=== PATIENT | male | born 1965 | race Caucasian/White ===

== ENCOUNTER → 2018-01-10 | Day surgery (SDC) | payer OTHER ==
[2017-12-27 08:39] VITALS: BMI 31.0
[~2018-01-10] VITALS: Ht 172.7 cm; Wt 93.2 kg
[~2018-01-10] MED LIST: AMLO-110 PO; ASPI81TA28 PO; GARL1CAP6 PO; LIDOCAINE HCL 2% 2 ML VIAL (20MG/ML) ONE; OMEG10007 PO; PROPOFOL IV EMULSION 10 MG/ML 20 ML VIAL IV ONE; SODIUM CHLORIDE 0.9% 500ML 500 ML IV ONE
[2018-01-10 13:23] VITALS: Ht 172.7 cm; Wt 93.2 kg
[2018-01-10 13:28] VITALS: TEMP 37.3
--- NOTE | 2018-01-10 13:54 | Endo History and Physical ---
History & Physical Date of Service: Jan 10, 2018. Chief Complaint: screening Referring Physician: Dr. Uriarte History of Present Illness 52 yo CM who presents for screening colonoscopy. Past Surgical History Hx Cardiac Surgery: No Hx Internal Defibrillator: No Hx Pacemaker: No Hx Abdominal Surgery: Yes (AVERY) Hx of Implantable Prosthesis: No Hx Post-Op Nausea and Vomiting: No Hx Cancer Surgery: No Hx Thoracic Surgery: No Hx Orthopedic: No Hx Urinary Tract Surgery: No Family History None Social History Smoking Status: Never Smoker Hx Substance Use: No Hx Alcohol Use: No Allergies Coded Allergies: No Known Allergies (Unverified , 01/10/18) Current Medications Reported Home Medications Medications Dose Route/Sig Max Daily Dose Days Date Category Garlic 10 Mg Cap 1 Cap PO DAILY 12/27/17 Reported [place]-3 (Fish Oil) 1 Ea Cap 1 Cap PO DAILY 12/27/17 Reported Aspirin Ec (Aspirin) 81 Mg Tab 81 Mg PO DAILY 12/27/17 Reported Norvasc (Amlodipine Besylate) 5 Mg Tab 5 Mg PO QAM 12/27/17 Reported Vital Signs Weight (Kilograms): 93.18 Height (Feet): 5 Height (Inches): 8 Date Time Temp Pulse Resp B/P (MAP) Pulse Ox O2 Delivery O2 Flow Rate FiO2 01/10/18 13:28 37.3 78 24 153/78 (103) 96 Room Air Physical Exam General Appearance: WD/WN, no apparent distress Respiratory/Chest: Auscultation: breath sounds normal Cardiovascular: Heart Auscultation: RRR Abdomen: Bowel Sounds: normal Inspection & Palpation: soft, non-distended, no tenderness, guarding & rebound Assessment and Plan Assessment: 52 yo CM who presents for screening colonoscopy. Plan: Proceed with colonoscopy.
--- NOTE | 2018-01-10 14:22 | GI REPORT ---
Procedure Date: 01/10/2018 1:56 PM Procedure: Colonoscopy Indications: Screening for colorectal malignant neoplasm Medicines: Monitored Anesthesia Care Complications: No immediate complications. Estimated Blood Loss: Estimated blood loss: none. Procedure: Pre-Anesthesia Assessment: - Prior to the procedure, a History and Physical was performed, and patient medications and allergies were reviewed. The patient's tolerance of previous anesthesia was also reviewed. The risks and benefits of the procedure and the sedation options and risks were discussed with the patient. All questions were answered, and informed consent was obtained. Prior Anticoagulants: The patient has taken no previous anticoagulant or antiplatelet agents. ASA Grade Assessment: II - A patient with mild systemic disease. After reviewing the risks and benefits, the patient was deemed in satisfactory condition to undergo the procedure. After I obtained informed consent, the scope was passed under direct vision. Throughout the procedure, the patient's blood pressure, pulse, and oxygen saturations were monitored continuously. The scope was introduced through the anus and advanced to the cecum, identified by appendiceal orifice and ileocecal valve. The colonoscopy was performed without difficulty. The patient tolerated the procedure well. The quality of the bowel preparation was good. The ileocecal valve, appendiceal orifice, and rectum were photographed. Findings: The perianal and digital rectal examinations were normal. Multiple small-mouthed diverticula were found in the sigmoid colon. Non-bleeding internal hemorrhoids were found during retroflexion. The hemorrhoids were small. Impression: - Diverticulosis in the sigmoid colon. - Non-bleeding internal hemorrhoids. - No specimens collected. Recommendation: - Resume previous diet. - Continue present medications. - Repeat colonoscopy in 10 years for surveillance. - Return to primary care physician as previously scheduled. Buck Fagan DO 01/10/2018 2:21:52 PM This report has been signed electronically. Note Initiated On: 01/10/2018 1:56 PM I attest to the content of the Intraoperative Record and orders documented therein, exceptions below
--- NOTE | 2018-01-10 14:40 | Anesthesiology Progress Note ---
Anesthesia Post Op Note Date & Time Jan 10, 2018 at 14:40 Vital Signs Pain Intensity: 0 Vital Signs Past 12 Hours Date Time Temp Pulse Resp B/P (MAP) Pulse Ox O2 Delivery O2 Flow Rate FiO2 01/10/18 14:37 72 16 133/91 (105) 93 Room Air 01/10/18 14:22 79 16 118/75 (89) 93 Room Air 01/10/18 13:28 37.3 78 24 153/78 (103) 96 Room Air Notes Mental Status: alert / awake / arousable, participated in evaluation Pt Amnestic to Procedure: Yes Nausea / Vomiting: adequately controlled Pain: adequately controlled Airway Patency, RR, SpO2: stable & adequate BP & HR: stable & adequate Hydration State: stable & adequate Anesthetic Complications: no major complications apparent
[2018-01-10 14:52] VITALS: BP 139/95; PULSE 63; O2SAT 95
--- NOTE | 2018-01-10 15:00 | Discharge Instructions ---
Endoscopy Patient Instructions Date / Procedure(s) Performed Jan 10, 2018. Colonoscopy Allergy Information Coded Allergies: No Known Allergies (Unverified , 01/10/18) Discharge Date / Findings Jan 10, 2018. Diverticulosis Internal hemorrhoids Medication Instructions OK to resume all medications today as prescribed Reported Home Medications Medications Dose Route/Sig Max Daily Dose Days Date Category Garlic 10 Mg Cap 1 Cap PO DAILY 12/27/17 Reported [place]-3 (Fish Oil) 1 Ea Cap 1 Cap PO DAILY 12/27/17 Reported Aspirin Ec (Aspirin) 81 Mg Tab 81 Mg PO DAILY 12/27/17 Reported Norvasc (Amlodipine Besylate) 5 Mg Tab 5 Mg PO QAM 12/27/17 Reported Provider Instructions Activity Restrictions - No exercising or heavy lifting for 24 hours. - Do not drink alcohol the day of the procedure. - Do not drive a car or operate machinery until the day after the procedure. - Do not make any important decisions or sign important papers in 24 hours after the procedure. Following Day: - Return to full activity which may include returning to work/school. Diet Start your diet with liquids and light foods (jello, soup, juice, toast). Then eat your usual diet if not nauseated. Treatment For Common After Affects For mild abdominal pain, bloating, or excessive gas: - Rest - Eat lightly - Lie on right side Follow-Up Information Follow-up with Dr. Uriarte as scheduled Anesthesia Information What You Should Know You have had a procedure that required some medicine to reduce anxiety and discomfort. This treatment is called moderate sedation. After receiving the treatment, you may be sleepy, but you will be able to breathe on your own. The effects of the treatment may last for several hours. Follow these instructions along with Activity/Diet recommendations noted above: * Do NOT do anything where dizziness or clumsiness would be dangerous. * Rest quietly at home today, then you can be up and about tomorrow. * Have a responsible person stay with you the rest of today. * You may have had an I.V. today. If so, you may take the dressing off later today. Recommendations Call your doctor if: * Trouble breathing * Continuous vomiting for more than 24 hours * Temperature above 101 degrees * Severe abdominal pain or bloating * Pain not relieved by pain medicine ordered * There is increased drainage or redness from any incision * A large amount of rectal bleeding greater than 2-3 tablespoons. (If you had a polyp/s removed or have hemorrhoids, a small amount of blood - from the rectum is to be expected.) * You have any unanswered questions or concerns. IN THE EVENT OF A SERIOUS EMERGENCY, GO TO THE NEAREST EMERGENCY ROOM Your discharge instructions were prepared by provider Buck Fagan. Patient Instructions Signature Page Joshua Eaton Patient (or Guardian) Signature/Date: I have read and understand the instructions given to me by my caregivers. Caregiver/RN/Doctor Signature/Date: The above-named patient and/or guardian has received patient instructions on this date. + Original Patient Signature Page (only) stays with chart. Please make copy for patient.
== END | disposition home or self-care (01) ==
LOC: C.GI 13:08
PROVIDERS: ATTEND Internal Medicine
DX: Z12.11 Encounter for screening for malignant neoplasm of colon (principal); K57.30 Diverticulosis of large intestine without perforation or abscess without bleeding; K64.8 Other hemorrhoids; I10 Essential (primary) hypertension; E66.9 Obesity, unspecified; Z90.49 Acquired absence of other specified parts of digestive tract; Z79.82 Long term (current) use of aspirin; Z87.442 Personal history of urinary calculi

== ENCOUNTER 2025-01-08 08:49 | Observation (INO) ==
--- NOTE | 2024-12-05 10:38 | PAT Medication Instructions ---
Medication Instructions Date of Service December 05, 2024 Home Medications Medication Instructions Recorded diclofenac sodium 1 % topical gel 2 g topical QID PRN pain, moderate 06/03/24 #100 grams omega-3 fatty acids 1,000 mg capsule (Fish Oil Concentrate) 1,200 mg PO QAM triamcinolone acetonide 0.1 % topical ointment 1 applic topical BID PRN Rash diclofenac sodium 1 % topical gel 2 g topical QID PRN pain, moderate hydrochlorothiazide 25 mg tablet 50 mg PO QAM STOP taking 2 weeks before surgery omega-3 fatty acids 1,000 mg capsule (Fish Oil Concentrate) 1,200 mg PO QAM STOP taking 24 hours before surgery triamcinolone acetonide 0.1 % topical ointment 1 applic topical BID PRN Rash diclofenac sodium 1 % topical gel 2 g topical QID PRN pain, moderate DO NOT take the morning of surgery hydrochlorothiazide 25 mg tablet 50 mg PO QAM OTHERWISE NOTHING TO EAT OR DRINK AFTER MIDNIGHT Other Notes If you have any questions please call us at [phone] or [phone] or [phone] or [phone]
--- NOTE | 2024-12-15 09:48 | Anesthesiology Consultation ---
Date of Service December 15, 2024 Assessment & Plan (1) Encounter for pre-operative examination: - Outpatient joint assessment: Patient is currently scheduled for inpatient pathway. If re-evaluated and patient/surgeon requests outpatient pathway, patient is acceptable candidate for outpatient joint program from anesthesia standpoint pending surgeon's office assessment of pt motivation/support/completion of same day joint program preop requirements. Chart Review Chart Review: Acceptable Risk for Surgery and Patient seen in Pre Admission Testing Teaching & Discussion Pre-Anesthesia Teaching/Discussion Notes: Instructed NPO after midnight before surgery, except medications with 15 cc of water. Medication instructions provided according to the PAT guidelines. History Surgery Operation Date: 01/08/25 10:40 Proposed Procedures p Left Total Knee Arthroplasty - Buster Gruber MD Height/Weight Height: 5 ft 8 in Weight: 101.1 kg Allergies Allergy/AdvReac Type Severity Reaction Status Date / Time No Known Allergies Allergy Verified 12/05/24 08:31 Medications Home Medications Medication Instructions Recorded Confirmed Last Taken omega-3 fatty acids 1,000 mg 1,200 mg PO QAM 01/20/20 12/05/24 Unknown capsule (Fish Oil Concentrate) triamcinolone acetonide 0.1 % 1 applic topical BID PRN Rash 03/24/24 12/05/24 Unknown topical ointment diclofenac sodium 1 % topical gel 2 g topical QID PRN pain, moderate 06/03/24 12/05/24 Unknown #100 grams hydrochlorothiazide 25 mg tablet 50 mg PO QAM 12/05/24 12/05/24 Unknown Past Medical History Medical History (Updated 12/16/24 @ 09:00 by Bebe Hooks PA-C) Acute meniscal tear of left knee Diverticulosis denies h/o diverticulitis Dyslipidemia Elevated hemoglobin A1c History of kidney stones (~1999) Hypertension controlled, stable per pt Osteoarthritis Patient denies h/o stroke, seizures, heart attack, heart failure, blood clots/DVTs or blood transfusions. Exercise / Class Metabolic Activity III < 4 Walking/Shop/Light housework (denies chest discomfort or shortness of breath with usual activities, less than 8 steps in home) Past Family History Family History Father Hypertension Parkinsons disease Son Leukemia Family/Other Myocardial infarction Uncle Myocardial infarction Mother Parkinsons disease Other No family history of adverse response to anesthesia Denies family history of Ovarian cancer Prostate cancer Breast cancer Colorectal cancer Past Surgical History Surgical History H/O wisdom tooth extraction History of colonoscopy Hx of cholecystectomy Hx of LASIK Past Anesthesia History No Hx of Anesthesia Complications and No Family Hx of Anesthesia Complications History of PONV No Hx of Motion Sickness and History of PONV (with wisdom teeth removal ) Social History Smoking Status: Never smoker Do You Dip or Chew Tobacco: No Hx Alcohol Use: No Hx Substance Use: No substance use type: does not use Review of Systems Patient denies chest pain, shortness of breath, dyspnea on exertion, snoring, witnessed apneas, reflux, fever, chills, cough, wheezing, or palpitations. Physical Exam Vital Signs Vitals BP 139/83 P 79 TEMP 98.1 SP02 96% on RA RESP 19 Physical Patient resting comfortably in chair in no acute distress, alert and oriented, responding appropriately throughout visit Full cervical extension range of motion without pain TMD 3.5 finger breadths Mallampati Score 3 Dentition: intact, denies chipped or loose teeth, caps/crowns, implants or bridges Lungs: normal respiratory effort. Good air movement, clear throughout to auscultation, no adventitious breath sounds Cardiac: regular rate and rhythm, no murmurs noted Carotid arteries: negative bruit bilat Lab Results Anesthesia Preop Results Results Anesthesia Widget: WBC 6.73 K/ul (4.8-10.8) 12/15/24 Hgb 16.3 g/dl (14.0-18.0) 12/15/24 Hct 47.3 % (42.0-52.0) 12/15/24 Plt 262 K/uL (130-400) 12/15/24 Na 140 mmol/L (136-145) 12/15/24 K 3.5 mmol/L (3.5-5.1) 12/15/24 Cl 98 mmol/L (98-107) 12/15/24 CO2 32 mmol/L (21-32) 12/15/24 BUN 20 mg/dl (6-23) 12/15/24 Creat 1.05 mg/dl (0.6-1.4) 12/15/24 Glucose Level 147 mg/dl (70-99(Fasting)) H 12/15/24 PT 11.3 Seconds (9.0-12.0) 12/15/24 PTT 25 Seconds (21-31) 12/15/24 INR 1.0 (0.9-1.1) 12/15/24 HA1c 6.4 % (4.5-5.6) H 12/15/24 Blood Type A Positive 12/15/24 Antibody Screen NEGATIVE 12/15/24 Testing Electrocardiogram Date: 12/15/24 NSR, rate 80 bpm Left axis deviation Chest X-Ray Date: 12/15/24 No acute findings.
--- NOTE | 2025-01-03 13:49 | History & Physical Report ---
Date of Service January 03, 2025 Assessment & Plan (1) Bilateral primary osteoarthritis of knee: 59-year-old male with advanced bilateral knee DJD left side more symptomatic than the right. Is failed conservative treatment. He would like to proceed with a knee replacement. Plan: We will take him to the operating room and do a left knee replacement. The risks and benefits of this procedure were explained and the patient understands. Informed consent was obtained. Will plan on using thigh-high teds, SCDs, aspirin for DVT prophylaxis. He is prediabetic will likely need insulin scot sliding scale coverage in the hospital. He is planned to be discharged to home using [facility] program. (2) Dyslipidemia: (3) Hypertension: History of Present Illness Chief Complaint: . Bilateral knee pain discomfort left side greater than the right. Primary Care Provider: Jones Uriarte DO . The patient is a 59-year-old fairly active gentleman who presents for surgical treatment of his knees. Is been a long-term patient of Dr. Ruiz. He has been through extensive conservative treatment which has become less successful over time. Both knees hurt. The left knee bothers him more than the right. He has been wearing a brace with minimal relief. Has had injections which have become less successful. He would like to have his left knee r eplaced. Allergies Allergy/AdvReac Type Severity Reaction Status Date / Time No Known Allergies Allergy Verified 12/05/24 08:31 Home Medications Medication Instructions Recorded Confirmed Type omega-3 fatty acids 1,000 mg 1,200 mg PO QAM 01/20/20 12/05/24 History capsule (Fish Oil Concentrate) triamcinolone acetonide 0.1 % 1 applic topical BID PRN Rash 03/24/24 12/05/24 History topical ointment diclofenac sodium 1 % topical gel 2 g topical QID PRN pain, moderate 06/03/24 12/05/24 Rx #100 grams hydrochlorothiazide 25 mg tablet 50 mg PO QAM 12/05/24 12/05/24 History Past Med/Surg History Problem List Encounter for pre-operative examination Bilateral primary osteoarthritis of knee Dyslipidemia (Acute) Hypertension (Acute) Medical History Dyslipidemia Hypertension controlled, stable per pt Elevated hemoglobin A1c Osteoarthritis History of kidney stones (~1999) Acute meniscal tear of left knee Diverticulosis denies h/o diverticulitis Surgical History History of colonoscopy Hx of LASIK H/O wisdom tooth extraction Hx of cholecystectomy Family History Father Hypertension Parkinsons disease Son Leukemia Family/Other Myocardial infarction Uncle Myocardial infarction Mother Parkinsons disease Other No family history of adverse response to anesthesia Denies family history of Ovarian cancer Prostate cancer Breast cancer Colorectal cancer Social History Smoking Status: Never smoker Second Hand Exposure: No; Do You Dip or Chew Tobacco: No; Hx Alcohol Use: No Hx Substance Use: No Preferred Language: [place] Communication Ability: Effective Visual Impairment: No Limitations Hearing Ability: Normal Vehicle Calibration Engineer Required: No Beliefs That Will Affect Care: None marital status: Current Living Situation: Spouse and Family Current Living Situation Comment: lives with and youngest son current occupational status: employed current occupation: AUT[employer] Feels Safe at Home: Yes Childhood Exposure to Second-Hand Smoke: No Diet: regular Dental Care, Regularly: Yes Physical Activity Frequency: 1-2 Times per Week Seatbelt Use: always Sunscreen Use: No Assistive Devices: None Review of Systems All systems reviewed & are unremarkable except as noted in HPI & below. Physical Exam . Physical examination was a pleasant middle-aged male. Examination both knees reveal patient walks independently. He wears compression sleeves on both knees in a hinged knee brace on the left side. Examination left knee reveals varus alignment. Got bony hypertrophy medially. Range of motion about 10-1 15. No instability. No pain with hip motion. Examination of the right knee reveals slight varus alignment. Minor bony hypertrophy. Minimal knee effusion. Range of motion 0-1 25. No pain with hip motion. Constitutional WD/WN, vitals as above Respiratory normal respiratory effort, lungs clear to auscultation Cardiovascular RRR, no murmur, no edema Gastrointestinal (Abdomen) normal bowel sounds, soft, nontender, no hepatosplenomegaly Results & Data Results & Data Laboratory Results . Diagnostic Findings . X-rays of the left knee were reviewed. She has advanced left knee DJD. Got complete loss of medial joint space. He is got subchondral sclerosis. He looks like he is got some loose bodies in the back of his knee. Got osteophytes in all 3 compartments. He has similar but less severe disease on his right side. PG Care Time/CCT Total # of Minutes Spent Total Time Spent with Patient: Total time spent is greater than 50% in coordination of care (as documented) at patient's floor/unit and/or counseling patient: Coding Level of Care Code None Diagnoses Bilateral primary osteoarthritis of knee M17.0 Dyslipidemia E78.5 Primary hypertension I10 Hypertension type: primary hypertension (3) Hypertension Hypertension type: primary hypertension Qualified Code(s): I10 - Essential (primary) hypertension
[~2025-01-08 08:49] MED LIST changes: -AMLO-110 PO; -ASPI81TA28 PO; +BUPIVACAINE 0.25% PF 30 ML VIAL ONE; +BUPIVACAINE 0.5 % 5 MG/1 ML PF 10ML VIAL ONE; -GARL1CAP6 PO; -LIDOCAINE HCL 2% 2 ML VIAL (20MG/ML) ONE; -OMEG10007 PO; -PROPOFOL IV EMULSION 10 MG/ML 20 ML VIAL IV ONE; -SODIUM CHLORIDE 0.9% 500ML 500 ML IV ONE
--- NOTE | 2025-01-08 09:00 | History & Physical Bridge Note ---
Date of Service January 08, 2025 History & Physical Bridge Note I have examined the patient, reviewed the History & Physical and in the interval since the performance of the History & Physical I have noted the following changes of clinical significance: no changes noted
[2025-01-08] MEDS: LR 500ML BOLUS, THEN 15ML/HR IV SCH (09:07)
[2025-01-08] MEDS: LR 60ML/HR IV SCH (09:07)
[2025-01-08] MEDS: ACETAMINOPHEN 500 MG TAB PO SCH ×2 (09:08→14:56)
[2025-01-08] MEDS: CeleBREX 200 MG CAP PO SCH (09:08)
[2025-01-08] MEDS: FAMOTIDINE 20 MG TAB PO SCH (09:08)
[2025-01-08] MEDS: dexAMETHasone**PF** 10 MG/ML VIAL IV SCH (09:08)
[2025-01-08] MEDS: METOCLOPRAMIDE HCL 10 MG TABLET PO SCH (09:08)
[2025-01-08] MEDS ORDERED: MIDAZOLAM HCL 1 MG/ML 2ML VIAL ONE ×2 (09:35→10:13)
[2025-01-08] MEDS ORDERED: fentaNYL citrate PF 100 MCG/2 ML VIAL ONE (09:35)
[2025-01-08] MEDS ORDERED: PROPOFOL IV EMULSION 10 MG/ML 20 ML VIAL IV ONE ×3 (09:38→12:49)
[2025-01-08] MEDS ORDERED: ONDANSETRON INJ 2 MG/ML 2 ML VIAL IV PRN ×2 (09:46→14:19)
[2025-01-08] MEDS ORDERED: ePHEDrine sulfate 50 MG/ML AMP IV PRN (09:46)
[2025-01-08] MEDS ORDERED: ATROPINE SULFATE 0.1 MG/ML 10ML SYR IV PRN (09:46)
[2025-01-08] MEDS ORDERED: fentaNYL citrate PF 100 MCG/2 ML VIAL IV PRN (09:46)
[2025-01-08] MEDS: ceFAZolin 2000MG 2,000 MG/15 ML SYR IV SCH ×2 (11:34→18:37)
[2025-01-08] MEDS: ORTHO JOINT ANESTHETIC ONE (12:00)
[2025-01-08] MEDS: ROPIV 0.5% 246mg, Ketorolac 30mg, EPINEPHrine 0.5mg in NSS INFIL SCH (12:00)
[2025-01-08] MEDS ORDERED: ONDANSETRON INJ 2 MG/ML 2 ML VIAL ONE (12:02)
[2025-01-08] MEDS: TRANEXAMIC ACID 1,000 MG **IV Intra-op IV SCH (12:28)
[2025-01-08] MEDS ORDERED: PHENYLEPHRINE 100MCG/ML 5ML SYR ONE (12:55)
--- NOTE | 2025-01-08 13:18 | Operative Report ---
PG Post Operative Report Pre & Post Diagnosis Operation Date: 01/08/25 10:40 Pre-Op Diagnosis: Left Knee Osteoarthritis Post-Op Diagnosis: Left Knee Osteoarthritis I identified the patient and participated in the time-out.: Yes Procedure Operation Date: 01/08/25 10:40 Actual Procedures p Left Total Knee Arthroplasty(Left) - Buster Gruber MD Surgeon Buster Gruber MD Stringed Instrument Repairer González Thornton PA-C Estimated Blood Loss 50 Findings Consistent with Post-Op Diagnosis Specimens Left knee sent for pathology. Anesthesia Type Spinal MAC Complications none Disposition Accompanied Patient To Recovery: No Indications The patient is a 59-year-old fairly active gentleman with a long history of bilateral knee pain discomfort describes gotten worse over time. Is been through extensive conservative treatment. Became less successful over time. X- rays show advanced bilateral knee arthritis. The left knee was bothering more than the right. He elected proceed with left total knee arthroplasty. Description of Procedure Operative implants consist of: 1. Biomet Vanguard size 65 left posterior stabilized femoral component. 2. Biomet size 75 tibial tray. 3. 12 mm posterior stabilized polyethylene insert. 4. 31 x 8 all poly patella. The patient was taken the op room, identified, placed on the operating table in the supine position. All conductors were appropriately padded. IV antibiotics fibra anesthesia team. A spinal anesthetic and adductor canal block had been provided in the holding area. A left thigh tent was then placed. The left lower extremity was then prepped and draped in usual sterile fashion. The left leg was elevated and exsanguinated with use of an Esmarch and the tourniquet was placed at 300 mmHg. An anterior approach to the left knee was then performed to longitudinal incision centered over the patella. Sharp dissection was Through subcutaneous tissue down the extensor mechanism. A medial parapatellar arthrotomy incision was made. Some subperiosteal dissection was carried out medially. The fat pad was resected from his patella tendon. Lateral patellofemoral ligament was released. Patella subluxated laterally and the knee was flexed. The osteophytes taken off distal femur. ACL and PCL were then released from distal femur the tibia subluxated anteriorly. The external treatment LYMErix then placed on the anterior face the tibia and adjusted 14 mm medially. The proximal tibial cut was made remove out of millimeter bone from the mL deficient aspect medial tibial plateau. The tibia sized to a size 75. Attention was then drawn to the femur. The distal femur examined the sharp drop with intramedullary canal was suction. A left 6 degree valgus cutting guide was placed. The distal femoral cutting block was pinned in place. Distal femoral cut was made take an additional 3 mm of bone off distal femur. The femur was then sized to a size 65. The AP cutting block was pinned parallel to the epicondylar axis which was 4 degrees of external rotation. The anterior cut, anterior chamfer, posterior cut, posterior chamfer cuts were made. The box cutting guide was placed and adjusted slightly laterally. The box cut was made. The knee was flexed. The remnants of the medial and lateral menisci were excised. The osteophytes taken off the posterior aspect of femur. A trial femoral component was placed. The tibial tray was pinned Vianey external rotation and the drill and stem punch were used to create defect in the proximal tibia for the tibial tray. The knee was then trialed and the 12 mm insert fit most appropriately. Attention was then drawn to the patella. The patella was cleaned of all soft tissue. Patella thickness measured 23 mm in thickness and was cut down to 15. It was sized to a size 31 patella. The lug holes were drilled for 31 patella. The lateral osteophytes removed. Patella button was placed. Knee was taken through range of motion patella tracked nicely with no thumbs test. Attention was then drawn toward placement permanent components. Nupathe all trial components were removed. Bone plug was placed into this femur limit blood loss. A double batch [place] G cement was mixed. Biomet Vanguard size 65 left posterior stabilized femoral component, a size 75 tibial tray, a 12 mm posterior stabilized polyethylene insert, and a 31 x 8 all poly patella then cemented in place. The knee was brought out into full extension till cement hardened. Final cement check was then performed. The pericapsular tissues were injected with total 100 cc of Ortho mix. The patient did receive 1 g of tranexamic acid. The tourniquet was then let down for final tourniquet time 56 minutes. Hemostasis surgeries electrocautery. Extensor Meclomen then closed with a combination 1 PDS suture #0 Vicryl suture in a loivbo-ci-wewon fashion. The extensor Metros were checked and found to be intact through the subcutaneous tissues then closed with 2 Dexon suture in a buried interrupted fashion skin was closed skin kala. Leg was then cleaned and dried and sterile dressing with Xeroform, 4 fours, sterile ABD pad, sterile cast padding, Bret bandage were applied. The patient was then transferred to the recovery room in stable condition. The patient tolerated the procedure well and there were no complications. González Thornton, my physician retail assistant manager, was present for the entire procedure. His assistance was essential and required for appropriate patient positioning, prepping and draping, surgical exposure, performing the technical details of the operation, placement the implants, closure of the wound, and placement of the sterile bandage. I attest to the content of the Intraoperative Record and any orders documented therein. Any exceptions are noted below.
--- NOTE | 2025-01-08 13:31 | XRay Report ---
XR knee LT 1 or 2V routine CLINICAL HISTORY: Surgical Post Op COMPARISON: 08/20/2023 FINDINGS: Left knee prosthesis shows no hardware complication. There is expected soft tissue gas. Sk in kala are present. IMPRESSION: Unremarkable postoperative exam. ACT 112: Negative or not required by law. Electronically signed by: Wilfrido Corrales M.D. 01/08/2025 1:29 PM
--- NOTE | 2025-01-08 13:53 | Anesthesiology Progress Note ---
Date of Service January 08, 2025 Anesthesia Post Procedure Vital Signs Vital Signs: Temp Pulse Pulse Resp BP Pulse Ox O2 Del Method 01/08/25 13:40 36.5 C 82 18 107/63 96 Oxymask 01/08/25 13:30 84 18 111/54 L 94 Oxymask 01/08/25 13:20 80 21 106/54 L 95 Oxymask 01/08/25 13:12 36.3 C L 83 20 106/51 L 93 Oxymask 01/08/25 08:54 36.7 C 67 18 148/80 H 95 Room Air O2 Flow Rate 01/08/25 13:40 2 01/08/25 13:30 2 01/08/25 13:20 7 01/08/25 13:12 7 01/08/25 08:54 Pain Intensity Left Knee: Pain Intensity: 0 Transfer of Care Handoff Completed per policy Notes Mental Status: alert / awake / arousable Patient Amnestic to Procedure: Yes Nausea / Vomiting: adequately controlled Pain: adequately controlled Airway Patency, RR, SpO2: stable & adequate BP & HR: stable & adequate Hydration State: stable & adequate Neuraxial Anesthesia: was administered and sensory block is resolving Anesthetic Complications: no major complications apparent and Pt Satisfied with anesthetic care
[2025-01-08] MEDS ORDERED: MAGNESIUM HYDROXIDE SUSP 30 ML UDC PO PRN (14:19)
[2025-01-08] MEDS ORDERED: ALUMINUM/MAGNESIUM SUSP 30 ML UDC PO PRN (14:19)
[2025-01-08] MEDS ORDERED: GLUCOSE 10 TAB/TUBE PO PRN (14:19)
[2025-01-08] MEDS ORDERED: TRIAMCINOLONE ACET 0.1% OINT 15 GM TUBE TOP PRN (14:19)
[2025-01-08] MEDS ORDERED: GLUCOSE 40% GEL 15 GM TUBE PO PRN (14:19)
[2025-01-08] MEDS ORDERED: HYDROmorphone INJ 0.5 MG/0.5 ML SYR IV PRN (14:19)
[2025-01-08] MEDS ORDERED: CARBOHYDRATES FOR HYPOGLYCEMIA PO PRN (14:19)
[2025-01-08] MEDS ORDERED: PHARMACY GLYCEMIC MGMT CONSULT PRN (14:19)
[2025-01-08] MEDS ORDERED: bisacodyL 10 MG SUPP PR PRN (14:19)
[2025-01-08] MEDS ORDERED: GLUCAGON FOR INJ 1 MG VIAL SQ PRN (14:19)
[2025-01-08] MEDS ORDERED: METOCLOPRAMIDE HCL INJ 5 MG/ML 2 ML VIAL IV PRN (14:19)
[2025-01-08] MEDS ORDERED: DEXTROSE 50% 50 ML SYRINGE IV PRN (14:19)
[2025-01-08] MEDS ORDERED: oxyCODONE HCL IR 5 MG TAB (IMMEDIATE RELEASE) PO PRN (14:19)
[2025-01-08] MEDS ORDERED: NALOXONE HCL 0.4 MG/1 ML VIAL/CARP IV PRN (14:19)
--- NOTE | 2025-01-08 14:37 | Pharmacy Report ---
Pharmacy Glycemic Short Note 2 - Date of Service January 08, 2025 - Glycemic Short BSG Results (Last 24 hours): 01/08/25 08:52 POC Glucose 129 H OUTPATIENT ANTIDIABETIC REGIMEN: * n/a * a1C 6.4% 12/17/34 ASSESSMENT: * Patient with pre-diabetes without anti-diabetic agents admitted following Left total knee arthroplasty * Pre-op BSG 129 mg/dL. Received dex10 mg IV x 1 this AM, additional dose tomorrow * Will hold on basal for now, begin weight stress 2 novolog PLAN FOR INPATIENT GLYCEMIC CONTROL: * Basal insulin * hold * Bolus insulin * NovoLog per scale ACHS or Q6hrs while NPO * Goal Range: Low 110 mg/dL - High 160 mg/dL * Correction Factor: 25 mg/dL/unit * Nutritional / Prandial insulin per carb ratio of 1 unit per 8 grams CHO consumed
[2025-01-08] MEDS: KETOROLAC 30 MG/ML VIAL IV SCH (14:56)
[2025-01-08] MEDS: INSULIN ASPART PER UNIT CHARGE SC SCH (15:04)
[2025-01-08] MEDS: ASCORBIC ACID 500 MG TAB PO SCH (17:14)
[2025-01-08] MEDS: TRANEXAMIC ACID / 0.7% NACL 1,000 MG/100 ML BAG IV SCH (18:40)
[2025-01-08] MEDS ORDERED: SENNA 8.6 MG TAB PO SCH (21:00)
[2025-01-08] MEDS: ASPIRIN 81 MG ECTAB PO SCH (21:57)
[2025-01-08] MEDS: SENNA 8.6 MG TAB PO SCH (21:58)
[2025-01-08] MEDS: DOCUSATE SODIUM 100 MG CAP PO SCH (21:58)
[2025-01-09] MEDS: INSULIN ASPART PER UNIT CHARGE SC SCH (00:45)
[2025-01-09 06:18] LABS: Hematocrit (blood only) 37.7 % (42.0-52.0); Hemoglobin 13.5 g/dl (14.0-18.0); Mean Corpuscular Hemoglobin 29.9 pg (25.0-34.0); Mean Corpuscular Hgb Conc 35.8 g/dL (32.0-36.0); Mean Corpuscular Volume 83.6 fL (80.0-100.0); Mean Platelet Volume 10.5 fL (9.4-12.4); Platelet Count 265 K/uL (130-400); RDW Coefficient of Variation 12.5 % (11.5-14.5); RDW Standard Deviation 38.1 fL (36.4-46.3); Red Blood Count 4.51 M/uL (4.70-6.10); White Blood Count 18.74 K/ul (4.8-10.8)
[2025-01-09 06:28] LABS: BUN Creatinine Ratio 23.1 (10-20); Calcium 8.7 mg/dl (8.6-10.3); Creatinine Clr Calc Pharmacy 82.7 ml/min; Potassium 3.2 mmol/L (3.5-5.1)
--- NOTE | 2025-01-09 07:25 | Orthopedic Progress Note ---
Date of Service January 09, 2025 Assessment & Plan (1) Status post left knee replacement: Plan: 59-year-old gentleman postop day 1 from a left knee replacement he is doing pretty well. Pains controlled. He is neurologically intact. Plan: 1. DVT prophylaxis including thigh-high teds, SCDs, aspirin twice a day. 2. PT/OT. Weight-bear as tolerated. Left total knee protocol. 3. Pain control. Doing okay with current pain regimen. 4. Disposition. Plan is to discharge to home with some home health later today after therapy (2) Dyslipidemia: (3) Hypertension: Admission and Anticipated Discharge Date Admission Date: January 08, 2025 Subjective 59-year-old gentleman postop day 1 from a total knee replacement. He is doing pretty well. Had a reasonable night. Pains controlled. No chest pain or shortness of breath. Not feeling dizzy or lightheaded. Hoping to go home today. Physical Exam Physical Exam: Physical examination was a pleasant middle-age male. He is lying in bed looks pretty comfortable this morning. Examination of the left leg reveals the dressing be clean dry and intact. He can dorsiflex and plantarflex his foot appropriately. He is neurologically intact. Respiratory: normal respiratory effort, lungs clear to auscultation Cardiovascular: RRR, no murmur, no edema Gastrointestinal (Abdomen): normal bowel sounds, soft, nontender, no hepatosplenomegaly Results & Data Vital Signs (Past 12 Hours) Vital Signs Temp Pulse Resp BP Pulse Ox O2 Del Method 01/09/25 04:06 36.6 C 84 18 109/64 94 Room Air 01/08/25 23:47 36.7 C 91 H 18 101/60 92 Room Air 01/08/25 21:51 36.7 C 90 16 125/69 97 Room Air Laboratory Results Hemoglobin is 13.5. Hematocrit is 37.7. Electrolytes are stable. (3) Hypertension Hypertension type: primary hypertension Qualified Code(s): I10 - Essential (primary) hypertension
[2025-01-09 07:35] VITALS: BP 132/70; PULSE 87; RESP 17; TEMP 97.7; O2SAT 95
[2025-01-09] MEDS: TAMSULOSIN HCL 0.4 MG CAP PO SCH (08:07)
[2025-01-09] MEDS: MULTIVITAMIN TAB PO SCH (08:07)
[2025-01-09] MEDS: OMEGA-3 (PURIFIED FISH OIL) 1 GM CAP PO SCH (08:07)
[2025-01-09] MEDS: hydroCHLOROthiazide 25 MG TAB PO SCH (08:07)
[2025-01-09] MEDS: dexAMETHasone 10 MG in SYRINGE 0 ML IV SCH (08:08)
--- NOTE | 2025-01-12 06:35 | Discharge Summary ---
Date of Service January 12, 2025 Admission HPI (Per Admitting) . The patient is a 59-year-old fairly active gentleman who presents for surgical treatment of his knees. Is been a long-term patient of Dr. Ruiz. He has been through extensive conservative treatment which has become less successful over time. Both knees hurt. The left knee bothers him more than the right. He has been wearing a brace with minimal relief. Has had injections which have become less successful. He would like to have his left knee replaced. Admission Exam (Per Admitting) . Physical examination was a pleasant middle-aged male. Examination both knees reveal patient walks independently. He wears compression sleeves on both knees in a hinged knee brace on the left side. Examination left knee reveals varus alignment. Got bony hypertrophy medially. Range of motion about 10-1 15. No instability. No pain with hip motion. Examination of the right knee reveals slight varus alignment. Minor bony hypertrophy. Minimal knee effusion. Range of motion 0-1 25. No pain with hip motion. Principal Diagnosis Same as "Discharge Diagnosis" noted below under Discharge Instructions. Discharge Data Procedures Performed Operation Date: 01/08/25 10:40 Actual Procedures p Left Total Knee Arthroplasty(Left) - Buster Gruber MD Ordered Studies 01/08/25 05:00 US - OR guided needle placemen Routine Hospital Course (1) Status post left knee replacement: This is a 59 year old patient admitted on 01/08/25 and underwent total knee arthroplasty. He tolerated the procedure well and there were no complications. Transferred to the PACU post op and later to the orthopedic floor for further care. He was given ancef for antibiotic prophylaxis. He was also given LYDIA stockings, SCDs, and aspirin for DVT prophylaxis. Hemoglobin, hematocrit, and vital signs were monitored during his hospital stay and remained stable. Did not require any blood transfusions. There were no complications during his hospital stay. By post op day #1 the patient was tolerating a diabetic diet, pain was reasonably controlled with oral pain medicine, and he was participating in physical therapy. On post op day #1 the patient was discharged home and set up with home health care. He was given printed discharge instructions including prescriptions for extra strength tylenol, aspirin, cefadroxil,ketorolac, zofran, senokot, flomax, and oxycodone. Continue physical therapy, weight bearing as tolerated. Continue LYDIA stockings. Follow up approximately 2 weeks post op or sooner if there are problems or concerns. Discharge Plan Discharge Items Patient Disposition: Home - Home Health Services Reason For Visit: Left Knee Osteoarthritis Discharge Diagnosis: Left Knee Replacement Activity: Per Instructions section Weightbearing: Full weightbearing Non-emergency contact: Surgeon Call non-emergency contact if: you have any medication questions Follow-up/Referrals: Jones Uriarte, DO [Primary Care Provider] - Diet: Carb Consistent or DM2 Addtl Attending Provider Instructions: ACTIVITY RECOMMENDATIONS: Diet: * You may resume previous diet. Physical Therapy: * You will go to physical therapy three times each week for four to six weeks after your surgery in order to regain your knee range of motion and to retrain your knee to work properly. * It is just as important to make sure you are getting your knee perfectly straight as it is to regain your knee bend. * Taking a pain pill an hour before therapy can help you have a more productive and comfortable therapy session. Home Exercise: * You were shown a series of exercises (heel props, heel slides, etc.) in the hospital. Do these exercises three to four times each day including the exercises you were shown in physical therapy. Walking: * Get up and walk several times each day. For the first four weeks, try not to stand or walk for more than one hour at a time. If you do stand or walk for more than one hour, you will not hurt anything, but your knee and leg will likely swell. * As you feel comfortable, you may change from the walker or crutches to a cane and then to independent walking. MEDICATIONS: New Medicine: * You will likely be taking one or more of these medications: 1. Oxycodone - A quick and shorter-acting pain medication. Take one to two tablets every six hours to lessen your pain. 2. Aspirin - Thins your blood to lessen the chance of forming a blood clot. * The most common side effects of pain medicine and iron are nausea and constipation. If nausea or constipation is too much of a problem or if you have any questions about your new medicines or doses, call [facility] at . We will try to help you manage these issues. "VERY IMPORTANT TO READ AND REVIEW" Pain: * The immediate post-operative period after knee replacement surgery is often quite painful. * You are given a prescription for pain medicine. You should take it, as directed, when you need it, especially before physical therapy and before going to bed. Pain that interferes with sleep is very common and can last several months. * You will likely need pain medicine for the first four to six weeks. It will not stop all of the pain. The pain will lessen and as you feel better, you may change to milder pain medicine such as Tylenol. * The most common side effects of pain medicine are nausea and constipation, so don't take more than you need. SPECIAL CARE INSTRUCTIONS: TEDs/Elastic Stockings: * The white elastic stockings help limit swelling and prevent blood clots from forming in your legs. The more you wear them, the more they work. * Wear them for six weeks after knee replacement surgery and four weeks after partial knee replacement. Incision Site Care: * Remove dressing postoperative day 2 and then shower. Keep direct shower pressure off the incision site. * After showering, cover kala with dry gauze and change daily or more frequently if the dressing is getting saturated with drainage. * Use the LYDIA stockings to hold dressing in place. DO NOT apply tape on the skin. * May completely stop using bandage if wound is dry and no drainage * [place] are removed between 2 and 3 weeks post-op. If your follow-up appointment is made before 2 weeks, please have your appointment re- scheduled. It is too early to remove the kala. Prevention of Infection: * Take antibiotics one hour before any dental cleaning, dental work, urological procedure, gastrointestinal procedure or any invasive surgery in order to prevent your new joint from getting infected. * You may get the antibiotics from the doctor performing the procedure or you may call our office at [phone] before and we will call in a prescription to the pharmacy of your choice. Things to Watch For: * Drainage from the incision site that occurs more than one week after your surgery. * Severely increased knee/leg pain or swelling. * Increased redness at the incision site. * Fever above 102 degrees Fahrenheit. * Unusual chest pain or shortness of breath. * Unusual pain or burning with urination. Call [facility] at [phone] with any of the above problems or if you have any questions about your medicines or recovery. FOLLOW UP VISIT: Make an appointment to see your doctor for approximately two weeks after surgery for a progress check and staple removal by calling the office at [phone]. Pending Studies at Discharge: No Stand-Alone Forms: My [facility], Smoking Cessation Medications and DC Order Prescriptions: Continued oxycodone 5 mg tablet 5 - 10 mg PO Q6 PRN (Reason: pain) Qty: 40 0RF Rx Instructions: Take as needed for pain ondansetron 4 mg tablet,disintegrating 4 mg PO Q8 PRN (Reason: nausea) Qty: 20 1RF Rx Instructions: Take as needed for nausea sennosides [Senokot] 8.6 mg tablet 8.6 mg PO BID 14 Days Qty: 28 0RF Rx Instructions: Take two times a day to prevent/treat constipation acetaminophen [Tylenol Extra Strength] 500 mg tablet 1,000 mg PO TID 30 Days Qty: 180 0RF Rx Instructions: Take 3 times per day to lessen pain. aspirin [Dustin Low Dose Aspirin] 81 mg tablet,delayed release (DR/EC) 81 mg PO BID 45 Days Qty: 90 0RF Rx Instructions: Take to prevent blood clots. cefadroxil 500 mg capsule 500 mg PO BID 7 Days Qty: 14 0RF Rx Instructions: Take 1 cap twice a day to prevent infection tamsulosin [Flomax] 0.4 mg capsule 0.4 mg PO DAILY Qty: 7 0RF Rx Instructions: Begin night BEFORE surgery to prevent urinary retention triamcinolone acetonide 0.1 % ointment 1 applic topical BID PRN (Reason: Rash) omega-3 fatty acids [Fish Oil Concentrate] 1,000 mg capsule 1,200 mg PO QAM diclofenac sodium 1 % gel 2 g topical QID PRN (Reason: pain, moderate) Qty: 100 2RF hydrochlorothiazide 25 mg tablet 50 mg PO QAM Admission Data Admit Date/Time: 01/08/25 13:10 Attending Provider: Buster Gruber Admit Provider: Buster Gruber Primary Care Provider: Jones Uriarte Other Providers: [facility],Home Health Other Interventions: Discharge Summary Assessment (RN) Last Done: 01/09/25 08:50
== END 2025-01-09 11:05 | disposition home health service (06) ==
LOC: 3E 08:49 → ASU 08:49

== ENCOUNTER 2025-04-22 06:45 | Observation (INO) ==
--- NOTE | 2025-04-10 13:00 | History & Physical Report ---
Date of Service April 10, 2025 Assessment & Plan (1) Right knee DJD: 59-year-old fairly active gentleman now 3 months out from a left knee replacement with persistent right knee pain discomfort. Happy with the left knee would like to have his right knee replaced. Plan: Working to take him to the operating room and do a right knee replacement. The risks met this procedure explained in depth. The patient understands and desires to proceed. Informed consent was obtained. He is planning to stay in the hospital overnight. Discharge postop day 1. Will use aspirin for DVT prophylaxis. His preoperative potassium was low and we will make sure he gets with his medical doctor and gets this fixed. May need to be checked in the morning of surgery. (2) Status post left knee replacement: (3) Dyslipidemia: (4) Hypertension: History of Present Illness Chief Complaint: . Right knee pain and discomfort. Primary Care Provider: Jones Uriarte DO . 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 He has a long history of knee problems and had a left knee replacement done 3 months or so ago. He is doing pretty well from this. He continues to bothered by right knee pain discomfort. He has since his left knee has gotten better the right knee started to hurt more. He has been through extensive conservative treatment which has become less successful. Very happy with his left knee would like to have his right knee replaced. Allergies Allergy/AdvReac Type Severity Reaction Status Date / Time No Known Allergies Allergy Verified 04/10/25 11:16 Home Medications Medication Instructions Recorded Confirmed Type omega-3 fatty acids 1,000 mg 1,200 mg PO QAM 01/20/20 04/10/25 History capsule (Fish Oil Concentrate) triamcinolone acetonide 0.1 % 1 applic topical BID PRN Rash 03/24/24 04/10/25 History topical ointment diclofenac sodium 1 % topical gel 2 g topical QID PRN pain, moderate 06/03/24 04/10/25 Rx #100 grams ondansetron 4 mg disintegrating 4 mg PO Q8 PRN nausea #20 tabs 01/06/25 04/10/25 Rx tablet oxycodone 5 mg tablet 5 - 10 mg (1 - 2 x 5 mg) PO Q6 PRN 01/06/25 04/10/25 Rx pain #40 tabs hydrochlorothiazide 25 mg tablet 25 mg PO QAM 04/10/25 04/10/25 History spironolactone 50 mg tablet 50 mg PO DAILY #30 tabs 04/10/25 04/10/25 Rx Past Med/Surg History Problem List (Updated 04/10/25 @ 13:02 by Buster Gruber MD) Right knee DJD Status post left knee replacement Bilateral primary osteoarthritis of knee Dyslipidemia (Acute) Hypertension (Acute) Medical History Dyslipidemia Hypertension controlled, stable per pt Elevated hemoglobin A1c Osteoarthritis History of kidney stones (~1999) Acute meniscal tear of left knee hx Diverticulosis denies h/o diverticulitis Surgical History History of total left knee replacement (TKR) History of colonoscopy Hx of LASIK H/O wisdom tooth extraction Hx of cholecystectomy Family History Father Hypertension Parkinsons disease Son Leukemia Family/Other Myocardial infarction Uncle Myocardial infarction Mother Parkinsons disease Other No family history of adverse response to anesthesia Denies family history of Ovarian cancer Prostate cancer Breast cancer Colorectal cancer Social History Smoking Status: Never smoker Second Hand Exposure: No; Do You Dip or Chew Tobacco: No; Hx Alcohol Use: No Hx Substance Use: No Preferred Language: B[place] Communication Ability: Effective Visual Impairment: No Limitations Hearing Ability: Normal Contract Associate Required: No Beliefs That Will Affect Care: None marital status: Current Living Situation: Spouse and Family Current Living Situation Comment: lives with and youngest son current occupational status: employed current occupation: AUTOMOTIVE Feels Safe at Home: Yes Childhood Exposure to Second-Hand Smoke: No Diet: regular Dental Care, Regularly: Yes Physical Activity Frequency: 1-2 Times per Week Seatbelt Use: always Sunscreen Use: No Assistive Devices: None Review of Systems All systems reviewed & are unremarkable except as noted in HPI & below. Physical Exam . Physical examination was a pleasant middle-age male looks made good health. HEENT exam is benign. Neck supple no lymphadenopathy lungs clear auscultation. Heart is regular rate and rhythm waldo soft nontender nondistended. Tremulous grossly neuro vas intact as follows. Examination of both knees reveals the patient to ambulate independently. Examination of the left knee reveals a well-healed incision. Some mild swelling. Range of motion 0-1 15. Good straight leg raise. Examination of the right knee reveals varus alignment to his knee. Got bony hypertrophy medially. He is tender with medial joint line. Range of motion about 5 degrees short of full extension on 20 degrees of flexion. No inst ability. No pain with hip motion. Constitutional WD/WN, vitals as above Respiratory normal respiratory effort, lungs clear to auscultation Cardiovascular RRR, no murmur, no edema Gastrointestinal (Abdomen) normal bowel sounds, soft, nontender, no hepatosplenomegaly Results & Data Results & Data Laboratory Results . Diagnostic Findings . X-rays of the right knee were reviewed. He is got advanced medial compartment arthritis. He has got osteophytes medially. The left knee replacement looks to be in good position without problems. PG Care Time/CCT Total # of Minutes Spent Total Time Spent with Patient: Total time spent is greater than 50% in coordination of care (as documented) at patient's floor/unit and/or counseling patient: Coding Level of Care Code None Diagnoses Right knee DJD M17.11 Status post left knee replacement Z96.652 Dyslipidemia E78.5 Primary hypertension I10 Hypertension type: primary hypertension (4) Hypertension Hypertension type: primary hypertension Qualified Code(s): I10 - Essential (primary) hypertension
--- NOTE | 2025-04-10 13:26 | Anesthesiology Consultation ---
Date of Service April 10, 2025 Assessment & Plan (1) Encounter for pre-operative examination: Chart Review Chart Review: Acceptable Risk for Surgery (pending repeat labs due to hypokalemia and PCP requested medical preop assessment ) and Patient NOT seen in Pre Admission Testing - Awaiting PCP ordered repeat labs in one week and PCP requested preop assessment - Check BSG AM DOS (presumed prediabetes per 04/08/25 Hgb A1C of 6.2; preop labs had glucose of 205- no medications at this time) Per PCP workload note re: hypokalemia 04/10/25= "Please inform patient that seth use of his low potassium bringing his hydrochlorothiazide down to 25 mg daily and starting him on spironolactone 25 mg daily. He can take both medications the same time. Repeat blood work in 1 week and I want to see him in the office for preoperative assessment" Pt currently scheduled as 23 hours observation. If surgeon decides to change patient to [facility] Day [facility], patient would be acceptable risk for TKA, pending patient is motivated, has good support and surgeon's office completes [facility] preop requirements. -Infectious Disease screening: Per PAT nursing assessment on 04/10/25. No known infectious disease contacts in past 10 days or current infectious disease symptoms. No recent travel outside the country. Left TKA 01/08/25= Done under SAB at L3-4 with 1 attempt History Surgery Operation Date: 04/22/25 08:40 Proposed Procedures p Right Total Knee Arthroplasty - Buster Gruber MD Height/Weight Height: 5 ft 8 in Weight: 97.522 kg Allergies Allergy/AdvReac Type Severity Reaction Status Date / Time No Known Allergies Allergy Verified 04/10/25 11:16 Medications Home Medications Medication Instructions Recorded Confirmed Last Taken omega-3 fatty acids 1,000 mg 1,200 mg PO QAM 01/20/20 04/10/25 12/29/24 capsule (Fish Oil Concentrate) triamcinolone acetonide 0.1 % 1 applic topical BID PRN Rash 03/24/24 04/10/25 12/25/24 topical ointment diclofenac sodium 1 % topical gel 2 g topical QID PRN pain, moderate 06/03/24 04/10/25 01/01/25 #100 grams ondansetron 4 mg disintegrating 4 mg PO Q8 PRN nausea #20 tabs 01/06/25 04/10/25 Unknown tablet oxycodone 5 mg tablet 5 - 10 mg (1 - 2 x 5 mg) PO Q6 PRN 01/06/25 04/10/25 Unknown pain #40 tabs hydrochlorothiazide 25 mg tablet 25 mg PO QAM 04/10/25 04/10/25 Unknown spironolactone 50 mg tablet 50 mg PO DAILY #30 tabs 04/10/25 04/10/25 Unknown Past Medical History Medical History Diverticulosis denies h/o diverticulitis Dyslipidemia Elevated hemoglobin A1c A1C 6.2 on 04/08/25 History of kidney stones (~1999) Hypertension controlled, stable per pt Osteoarthritis Past Family History Family History Father Hypertension Parkinsons disease Son Leukemia Family/Other Myocardial infarction Uncle Myocardial infarction Mother Parkinsons disease Other No family history of adverse response to anesthesia Denies family history of Ovarian cancer Prostate cancer Breast cancer Colorectal cancer Past Surgical History Surgical History H/O wisdom tooth extraction History of colonoscopy History of total left knee replacement (TKR) Left TKA 01/08/25= Done under SAB at L3-4 with 1 attempt Hx of cholecystectomy Hx of LASIK Social History Smoking Status: Never smoker Do You Dip or Chew Tobacco: No Hx Alcohol Use: No Hx Substance Use: No substance use type: does not use Lab Results Anesthesia Preop Results Results Anesthesia Widget: WBC 6.15 K/ul (4.8-10.8) 04/08/25 Hgb 15.5 g/dl (14.0-18.0) 04/08/25 Hct 45.0 % (42.0-52.0) 04/08/25 Plt 239 K/uL (130-400) 04/08/25 Na 138 mmol/L (136-145) 04/08/25 K 3.0 mmol/L (3.5-5.1) L 04/08/25 Cl 99 mmol/L (98-107) 04/08/25 CO2 28 mmol/L (21-32) 04/08/25 BUN 19 mg/dl (6-23) 04/08/25 Creat 0.99 mg/dl (0.6-1.4) 04/08/25 Glucose Level 205 mg/dl (70-99(Fasting)) H 04/08/25 PT 11.1 Seconds (9.0-12.0) 04/08/25 PTT 27 Seconds (21-31) 04/08/25 INR 1.0 (0.9-1.1) 04/08/25 HA1c 6.2 % (4.5-5.6) H 04/08/25 Blood Type A Positive 04/08/25 Antibody Screen NEGATIVE 04/08/25 Testing Laboratory Results Hypokalemia- PCP aware - rechecking in one week after medication changes made Hyperglycemia- will send message to PCP to address at upcoming preop visit Electrocardiogram Date: 12/15/24 NSR, rate 80 bpm Left axis deviation Chest X-Ray Date: 12/15/24 No acute findings.
[~2025-04-22 06:45] MED LIST changes: -BUPIVACAINE 0.25% PF 30 ML VIAL ONE; -BUPIVACAINE 0.5 % 5 MG/1 ML PF 10ML VIAL ONE; +ROPIVACAINE 0.5% 5 MG/ML 30 ML VIAL ONE
--- NOTE | 2025-04-22 07:00 | History & Physical Bridge Note ---
Date of Service April 22, 2025 History & Physical Bridge Note I have examined the patient, reviewed the History & Physical and in the interval since the performance of the History & Physical I have noted the following changes of clinical significance: no changes noted
[2025-04-22] MEDS: LR 500ML BOLUS, THEN 15ML/HR IV SCH (07:18)
[2025-04-22] MEDS: FAMOTIDINE 20 MG TAB PO SCH (07:19)
[2025-04-22] MEDS: LR 60ML/HR IV SCH (07:19)
[2025-04-22] MEDS: ACETAMINOPHEN 500 MG TAB PO SCH ×2 (07:19→14:04)
[2025-04-22] MEDS ORDERED: PROPOFOL IV EMULSION 10 MG/ML 20 ML VIAL IV ONE ×3 (07:43→10:35)
[2025-04-22] MEDS ORDERED: MIDAZOLAM HCL 1 MG/ML 2ML VIAL ONE (07:43)
[2025-04-22] MEDS ORDERED: HYDROmorphone INJ 1 MG/ML SYRINGE IV PRN (08:14)
[2025-04-22] MEDS ORDERED: ATROPINE SULFATE 0.1 MG/ML 10ML SYR IV PRN (08:14)
[2025-04-22] MEDS ORDERED: ONDANSETRON INJ 2 MG/ML 2 ML VIAL IV PRN (08:14)
[2025-04-22] MEDS: TRANEXAMIC ACID 1,000 MG **IV Pre-op IV SCH (09:15)
[2025-04-22] MEDS: ORTHO JOINT ANESTHETIC ONE (10:15)
[2025-04-22] MEDS ORDERED: ONDANSETRON INJ 2 MG/ML 2 ML VIAL ONE (10:34)
[2025-04-22] MEDS: ROPIV 0.5% 246mg, Ketorolac 30mg, EPINEPHrine 0.5mg in NSS INFIL SCH (11:15)
--- NOTE | 2025-04-22 11:36 | Operative Report ---
PG Post Operative Report Pre & Post Diagnosis Operation Date: 04/22/25 08:50 Pre-Op Diagnosis: Right Knee Degenerative Joint Disease Post-Op Diagnosis: Right Knee Degenerative Joint Disease I identified the patient and participated in the time-out.: Yes Procedure Operation Date: 04/22/25 08:50 Actual Procedures p Right Total Knee Arthroplasty(Right) - Buster Gruber MD Surgeon Buster Gruber MD Partner Marketing Intern Chace Wakefield PA-C Estimated Blood Loss 50 Findings Consistent with Post-Op Diagnosis Specimens Right knee sent for pathology. Anesthesia Type Spinal MAC Complications none Disposition Accompanied Patient To Recovery: No Indications The patient is a 59-year-old fairly active gentleman who had a several year history of increasing bilateral knee pain discomfort. Been through extensive conservative treatment the past which has become less successful. He had his left knee replaced about 3 and half months ago and is done well from this. He continue to be limited by right knee pain. X-rays show advanced right knee ar thritis. He elected proceed with right total knee arthroplasty. Description of Procedure Operative implants consist of: 1 Biomet Vanguard size 67.5 right posterior stabilized femoral component. 2. Biomet size 71 tibial tray. 3. 12 mm posterior stabilized polyethylene insert. 4. 31 x 8 all poly patella. The patient was taken to the operating, identified, placed on the operating table in the supine position. All contact areas were appropriately padded. IV antibiotics fibra anesthesia team. A spinal anesthetic and adductor canal block had been provided in the holding area. A right thigh tent was then placed. The right lower extremity was then prepped and draped in usual sterile fashion. The right leg was elevated and exsanguinated with use of an Esmarch and the tourniquet was placed at 300 mmHg. An anterior approach of the right knee was then performed to longitudinal incision centered over the patella. Sharp dissection Through subcutaneous tissue down the extensor mechanism. A medial parapatellar arthrotomy incision was made. Some subperiosteal dissection was carried out medially. The fat pad was resected munis patella tendon. The lateral patellofemoral ligament was released. The patella was subluxated laterally and the knee was flexed. The osteophytes taken off distal femur. The ACL and PCL were then released in the distal femur and the tibia subluxated anteriorly. The external tibial LYMErix then placed on the anterior face of the tibia and adjusted 14 mm medially. The proximal tibial cut was made to move about a millimeter or 2 of bone from the medial side. The tibia sized to a size 71. Some osteophytes taken off medially. Attention then drawn to the femur. The distal femur was entered with a sharp drill. Intramedullary canal was suction. Right 6 degree valgus cutting guide was placed. The distal femoral cutting block was pinned in place. Distal femoral cut was made to take an additional 3 mm of bone off distal femur. The femur was then sized to a size 67.5. The AP cutting block was pinned parallel to the epicondylar axis which was 3 degrees of external rotation. Anterior cut, anterior chamfer, posterior cut, posterior chamfer cuts were made. The box cutting guide was placed and just slight lateral box cut was made. The knee was flexed. The remnants of the medial and lateral menisci were excised. The osteophytes taken off the posterior aspect the femur. A trial femoral component was placed. The tibial tray was pinned in Vianey external rotation and the drill and stem punch were used to create defect in the proximal tibia for the tibial tray. The knee was then trialed and the 12 mm insert fit most appropriately. Attention drawn the patella. The patella was cleaned of all soft tissues. Patella thickness measured 23 mm in thickness was cut down to 15. Was sized to a size 31 patella. The lug holes were drilled for 31 patella. The lateral osteophytes removed. Patella button was placed. Knee was taken through range of motion and patella tracked nicely with no thumbs test. Attention then drawn to placement permanent components. All trial components were removed. Bone plug was placed into the distal femur limit blood loss. A double batch Pal[place]os G cement was mixed. A Biomet Vanguard size 67.5 right posterior stabilized femoral component, size 71 tibial tray, a 12 mm posterior stabilized polyethylene insert, and a 31 x 8 all poly patella then cemented in place. The knee was brought out into full extension till cement hardened. Final cement check was then performed. The pericapsular tissues were injected with a total of 100 cc of Ortho mix. The patient did receive 1 g tranexamic acid. The tourniquet was let down for final tourniquet t lorna of 59 minutes. Hemostasis assured use electrocautery. Extensor Meclomen then closed with combination 1 PDS suture #1 Vicryl suture in a [id number] fashion. Extensor Meclomen checked found to be intact through subcutaneous tissue then closed with 2 Dexon suture in a buried interrupted fashion skin was closed skin kala. Leg was then cleaned and dried and a sterile dressing with Xeroform, 4 fours, sterile cast padding, Bret bandage were applied. Patient then transferred to the recovery room in stable condition. The patient tolerated procedure well and there were no complications. Chace Wakefield, my physician assistant manager of operations, was present for the entire procedure. His assistance was required for proper patient positioning, prepping and draping, surgical exposure, retraction, perform the technical details of the operation, placement of the implants, closure of the incision site, and placement of postoperative sterile bandage. I attest to the content of the Intraoperative Record and any orders documented therein. Any exceptions are noted below.
--- NOTE | 2025-04-22 11:58 | XRay Report ---
XR knee RT 1 or 2V routine HISTORY: 59 years-old Male Surgical Post Op COMPARISON: 03/13/2025 TECHNIQUE: 2 views of the right knee FINDINGS: Total joint arthroplasty with patellar resurfacing. Anterior midline skin kala with expected posto perative soft tissue swelling and deep tissue air. No acute fracture, malalignment or unexpected opaq ue foreign body. IMPRESSION: Total joint arthroplasty with expected postoperative changes. ACT 112: Negative or not required by law. The above report was generated using voice recognition software. It may contain grammatical, syntax o r spelling errors. Electronically signed by: Cullen Rodriguez M.D. 04/22/2025 11:57 AM
[2025-04-22] MEDS ORDERED: BUPIVACAINE 0.5 % 5 MG/1 ML PF 10ML VIAL ONE (11:59)
[2025-04-22] MEDS ORDERED: GLUCOSE 40% GEL 15 GM TUBE PO PRN (12:39)
[2025-04-22] MEDS ORDERED: MAGNESIUM HYDROXIDE SUSP 30 ML UDC PO PRN (12:39)
[2025-04-22] MEDS ORDERED: NALOXONE HCL 0.4 MG/1 ML VIAL/CARP IV PRN (12:39)
[2025-04-22] MEDS ORDERED: GLUCOSE 10 TAB/TUBE PO PRN (12:39)
[2025-04-22] MEDS ORDERED: DEXTROSE 50% 50 ML SYRINGE IV PRN (12:39)
[2025-04-22] MEDS ORDERED: CARBOHYDRATES FOR HYPOGLYCEMIA PO PRN (12:39)
[2025-04-22] MEDS ORDERED: ALUMINUM/MAGNESIUM SUSP 30 ML UDC PO PRN (12:39)
[2025-04-22] MEDS ORDERED: HYDROmorphone INJ 0.5 MG/0.5 ML SYR IV PRN (12:39)
[2025-04-22] MEDS ORDERED: PHARMACY GLYCEMIC MGMT CONSULT PRN (12:39)
[2025-04-22] MEDS ORDERED: diphenhydrAMINE Capsule 25 MG CAP PO PRN (12:39)
[2025-04-22] MEDS ORDERED: TRIAMCINOLONE ACET 0.1% OINT 15 GM TUBE TOP PRN (12:39)
[2025-04-22] MEDS ORDERED: GLUCAGON FOR INJ 1 MG VIAL SQ PRN (12:39)
[2025-04-22] MEDS ORDERED: METOCLOPRAMIDE HCL INJ 5 MG/ML 2 ML VIAL IV PRN (12:39)
--- NOTE | 2025-04-22 13:07 | Anesthesiology Progress Note ---
Date of Service April 22, 2025 Anesthesia Post Procedure Vital Signs Vital Signs: Temp Pulse Resp BP Pulse Ox O2 Del Method O2 Flow Rate 04/22/25 13:00 63 18 131/72 97 Room Air 04/22/25 12:50 65 14 120/72 98 Room Air 04/22/25 12:35 66 13 124/67 97 Room Air 04/22/25 12:25 66 18 109/71 97 Room Air 04/22/25 12:10 36.4 C L 63 17 128/70 97 Room Air 04/22/25 12:00 54 L 13 119/71 97 Room Air 04/22/25 11:50 63 18 128/75 100 Room Air 04/22/25 11:40 64 24 123/69 100 Oxymask 3 04/22/25 11:33 36.6 C 74 23 123/68 100 Oxymask 6 04/22/25 07:01 36.5 C 74 18 147/93 H 99 Room Air Pain Intensity Right Knee: Pain Intensity: 6 Transfer of Care Handoff Completed per policy Notes Mental Status: alert / awake / arousable and participated in evaluation Patient Amnestic to Procedure: Yes Nausea / Vomiting: adequately controlled Pain: adequately controlled Airway Patency, RR, SpO2: stable & adequate BP & HR: stable & adequate Hydration State: stable & adequate Anesthetic Complications: no major complications apparent and Pt Satisfied with anesthetic care
[2025-04-22] MEDS: KETOROLAC 30 MG/ML VIAL IV SCH (14:04)
[2025-04-22] MEDS: SODIUM CHLORIDE 0.9% 1,000 ML IV SCH (14:04)
--- NOTE | 2025-04-22 14:55 | Pharmacy Report ---
Pharmacy Glycemic Short Note 2 - Date of Service April 22, 2025 - Glycemic Short BSG Results (Last 24 hours): 04/22/25 04/22/25 07:04 14:44 POC Glucose 113 H 138 H OUTPATIENT ANTIDIABETIC REGIMEN: * n/a HbA1c: 6.2% on 04/08/25 ASSESSMENT: * Joshua is a 59 year old male who was admitted today for a right total knee arthroplasty. Pharmacy was consulted for glycemic management postop. * Preop BSG was 113mg/dL and postop was 138mg/dL. No basal insulin is needed at this time a weight based bolus insulin regimen using only the correction factor (no carb ratio) with a stress of 1 was started. PLAN FOR INPATIENT GLYCEMIC CONTROL: * Basal insulin * NONE needed * Bolus insulin * NovoLog per scale ACHS or Q6hrs while NPO * Goal Range: Low 110 mg/dL - High 140 mg/dL * Correction Factor: 45 mg/dL/unit * Nutritional / Prandial insulin per carb ratio -NONE
[2025-04-22] MEDS: INSULIN ASPART PER UNIT CHARGE SC SCH (17:27)
[2025-04-22] MEDS: ASCORBIC ACID 500 MG TAB PO SCH (17:35)
[2025-04-22] MEDS: TRANEXAMIC ACID / 0.7% NACL 1,000 MG/100 ML BAG IV SCH (17:35)
[2025-04-22] MEDS ORDERED: SENNA 8.6 MG TAB PO SCH (21:00)
[2025-04-22] MEDS: SENNA 8.6 MG TAB PO SCH (21:07)
[2025-04-22] MEDS: DOCUSATE SODIUM 100 MG CAP PO SCH (21:07)
[2025-04-22] MEDS: ASPIRIN 81 MG ECTAB PO SCH (21:18)
[2025-04-23] MEDS: ONDANSETRON INJ 2 MG/ML 2 ML VIAL IV PRN (06:46)
--- NOTE | 2025-04-23 07:05 | Orthopedic Progress Note ---
Date of Service April 23, 2025 Assessment & Plan (1) Status post right knee replacement: Plan: 59-year-old gentleman postop day 1 from right knee replacement done reasonably well. Some pain but nothing out of the ordinary. He is dressings clean dry and intact and he is neurologically intact. Plan: 1. DVT prophylaxis including Thiede teds, SCDs, aspirin twice a day. 2. PT/OT. Weight-bear as tolerated. Right total knee protocol. 3. Pain control. Doing okay with current pain regimen. 4. Disposition. Plan is discharge home with home health if he does okay in therapy today. (2) Status post left knee replacement: Admission and Anticipated Discharge Date Admission Date: April 22, 2025 Subjective 59-year-old gentleman postop day 1 from right knee replacement. He is doing pretty well. Had a reasonable night. Some pain but manageable. No chest pain or shortness of breath. Not feeling dizzy or lightheaded. Physical Exam Physical Exam: Physical exam shows a pleasant middle-age male. Days lying in bed looks pretty comfortable. Examination of the right leg reveals to be well aligned. Dressings clean dry and intact. He can dorsiflex and plantarflex his foot appropriately. He can do a good straight leg raise. Respiratory: normal respiratory effort, lungs clear to auscultation Cardiovascular: RRR, no murmur, no edema Gastrointestinal (Abdomen): normal bowel sounds, soft, nontender, no hepatosplenomegaly Results & Data Vital Signs (Past 12 Hours) Vital Signs Temp Pulse Resp BP Pulse Ox O2 Del Method 04/23/25 04:34 36 C L 60 14 125/75 99 Room Air 04/23/25 00:46 36.4 C L 66 14 156/93 H 99 Room Air 04/22/25 19:09 36.5 C 68 16 143/77 H 97 Room Air Laboratory Results Labs are pending.
[2025-04-23 07:51] VITALS: BP 144/80; PULSE 59; RESP 16; TEMP 98.1; O2SAT 95
[2025-04-23 08:21] LABS: Hematocrit (blood only) 42.1 % (42.0-52.0); Hemoglobin 14.6 g/dl (14.0-18.0); Mean Corpuscular Hemoglobin 29.8 pg (25.0-34.0); Mean Corpuscular Volume 85.9 fL (80.0-100.0); Platelet Count 228 K/uL (130-400); RDW Standard Deviation 38.8 fL (36.4-46.3); Red Blood Count 4.90 M/uL (4.70-6.10); White Blood Count 8.80 K/ul (4.8-10.8)
[2025-04-23] MEDS: dexAMETHasone 10 MG in SYRINGE 0 ML IV SCH (08:21)
[2025-04-23] MEDS: MULTIVITAMIN TAB PO SCH (08:21)
[2025-04-23 08:48] LABS: Anion Gap 6.0 (3-11); Blood Urea Nitrogen 16.0 mg/dl (6-23); Calcium 8.5 mg/dl (8.6-10.3); Carbon Dioxide 29.0 mmol/L (21-32); Chloride 99.0 mmol/L (98-107); Creatinine Clr Calc Pharmacy 89.4 ml/min; Glucose 133.0 mg/dl (70-99(Fasting)); Potassium 4.4 mmol/L (3.5-5.1); Sodium 134.0 mmol/L (136-145)
[2025-04-23] MEDS: TAMSULOSIN HCL 0.4 MG CAP PO SCH (08:59)
[2025-04-23] MEDS: hydroCHLOROthiazide 25 MG TAB PO SCH (08:59)
[2025-04-23] MEDS: OMEGA-3 (PURIFIED FISH OIL) 1 GM CAP PO SCH (08:59)
[2025-04-23] MEDS: SPIRONOLACTONE 25 MG TAB PO SCH (09:01)
== END 2025-04-23 10:44 | disposition home health service (06) ==
LOC: ASU 06:45 → 3E 06:45